=== PATIENT | male | born 1995 | race American Indian/Alaskan Native ===

== ENCOUNTER 2019-02-17 18:29 | Emergency (ER) | payer OTHER ==
--- NOTE | 2019-02-17 19:09 | Emergency Department Report ---
Blank Doc - Documentation Documentation: This is a 23-year-old male that presents with frontal pain and rhinnorrhea. De nies any cough or any other complaints/symptoms. This initial assessment/diagnostic orders/clinical plan/treatment(s) is/are subject to change based on patient's health status, clinical progression and re- assessment by fellow clinical providers in the ED. Further treatment and workup at subsequent clinical providers discretion. Patient/guardians urged not to elope from the ED as their condition may be serious if not clinically assessed and managed. Initial orders include: 1- Patient sent to [facility] for further evaluation and treatment
--- NOTE | 2019-02-17 22:20 | Emergency Department Report ---
- General Chief Complaint: Upper Respiratory Infection Stated Complaint: CHEST TIGHT/EYES WATERY Time Seen by Provider: 02/17/19 19:08 Source: patient Mode of arrival: Ambulatory Limitations: No Limitations - History of Present Illness Initial Comments: Patient is a 23-year-old -[place] male who presents for sinus pain and pressure with rhinorrhea and postnasal drip past week patient has cirrhosis history of seasonal allergies with recurrent sinusitis there is no fever or chills no nausea vomiting no dizziness or lightheadedness symptoms ulcers or movement and position symptoms are relieved by rest MD Complaint: cough, sore throat, rhinorrhea, nasal congestion, sinus pain Onset/Timin -: week(s) Severity: moderate Severity scale (0 -10): 5 Quality: aching Consistency: constant Improves With: nothing Worsens With: activity Associated Symptoms: myalgias, rhinorrhea, nasal congestion, sore throat Treatments Prior to Arrival: none - Related Data Previous Rx's Medication Instructions Recorded Last Taken Type Erythromycin [Erythromycin Ophth 10 applic OD TID #1 tube 11/09/15 Unknown Rx Oint] Cetirizine HCl [Zyrtec] 10 mg PO DAILY #30 tablet 02/17/19 Unknown Rx Clindamycin [Clindamycin CAP] 300 mg PO Q8H 10 Days #30 cap 02/17/19 Unknown Rx Fluticasone [Flonase] 1 spray NS QDAY #1 bottle 02/17/19 Unknown Rx Ibuprofen 800 mg PO TID PRN #30 tablet 02/17/19 Unknown Rx Allergies Allergy/AdvReac Type Severity Reaction Status Date / Time Penicillins Allergy Swelling Verified 11/09/15 13:24 ED Review of Systems ROS: Stated complaint: CHEST TIGHT/EYES WATERY Other details as noted in HPI Constitutional: denies: chills, fever Eyes: denies: eye pain, eye discharge, vision change ENT: throat pain, congestion. denies: ear pain Respiratory: denies: cough, shortness of breath, wheezing Cardiovascular: denies: chest pain, palpitations Endocrine: no symptoms reported Gastrointestinal: denies: abdominal pain, nausea, vomiting, diarrhea Genitourinary: denies: urgency, dysuria Musculoskeletal: denies: back pain, joint swelling, arthralgia Skin: denies: rash, lesions Neurological: denies: headache, weakness, paresthesias Psychiatric: denies: anxiety, depression Hematological/Lymphatic: denies: easy bleeding, easy bruising ED Past Medical Hx - Past Medical History Hx Asthma: Yes - Surgical History Past Surgical History?: No - Social History Smoking Status: Never Smoker Substance Use Type: None - Medications Home Medications: Home Medications Medication Instructions Recorded Confirmed Last Taken Type Erythromycin [Erythromycin Ophth 10 applic OD TID #1 tube 11/09/15 Unknown Rx Oint] Cetirizine HCl [Zyrtec] 10 mg PO DAILY #30 tablet 02/17/19 Unknown Rx Clindamycin [Clindamycin CAP] 300 mg PO Q8H 10 Days #30 cap 02/17/19 Unknown Rx Fluticasone [Flonase] 1 spray NS QDAY #1 bottle 02/17/19 Unknown Rx Ibuprofen 800 mg PO TID PRN #30 tablet 02/17/19 Unknown Rx ED Physical Exam - General Limitations: No Limitations General appearance: alert, in no apparent distress - Head Head exam: Present: atraumatic, normocephalic - Eye Eye exam: Present: normal appearance, PERRL, EOMI Pupils: Present: normal accommodation - ENT ENT exam: Present: mucous membranes moist, TM's normal bilaterally, normal external ear exam - Expanded ENT Exam Expanded Ear exam: Present: other (bilat frontal and maxillary sinus pressure no swelling on erythema ) Mouth exam: Absent: trismus Throat exam: Positive: tonsillar erythema, tonsillomegaly, other (uvula midline no strior no exudate clear post nasal drip moderat erythema ). Negative: tonsillar exudate, R peritonsillar mass, L peritonsillar mass - Neck Neck exam: Present: normal inspection, full ROM, lymphadenopathy. Absent: tenderness, meningismus, thyromegaly - Respiratory Respiratory exam: Present: normal lung sounds bilaterally. Absent: respiratory distress, wheezes, stridor, chest wall tenderness - Cardiovascular Cardiovascular Exam: Present: regular rate, normal rhythm, normal heart sounds. Absent: systolic murmur, diastolic murmur, rubs, gallop - GI/Abdominal GI/Abdominal exam: Present: soft, normal bowel sounds. Absent: distended, tenderness, guarding, bruit, hernia - Rectal Rectal exam: Present: deferred - Extremities Exam Extremities exam: Present: normal inspection - Back Exam Back exam: Present: normal inspection, full ROM. Absent: tenderness, CVA tenderness (R), CVA tenderness (L) - Neurological Exam Neurological exam: Present: alert, oriented X3, CN II-XII intact, normal gait, reflexes normal - Psychiatric Psychiatric exam: Present: normal affect, normal mood - Skin Skin exam: Present: warm, dry, intact, normal color. Absent: rash ED Course Vital Signs 02/17/19 02/17/19 18:55 19:08 Temperature 98.8 F 98.8 F Pulse Rate 105 H 105 H Respiratory 18 18 Rate Blood Pressure 145/76 Blood Pressure 145/76 [Left] O2 Sat by Pulse 97 Oximetry ED Medical Decision Making - Medical Decision Making His current allergic rhinitis versus sinusitis plan Augmentin Flonase Zyrtec ibuprofen and follow up with PCP in 2-3 days patient given referral [facility] patient verbalizes agreement and understanding the same patient DC'd home in stable condition at this time Critical care attestation.: If time is entered above; I have spent that time in minutes in the direct care of this critically ill patient, excluding procedure time. ED Disposition Clinical Impression: Sinusitis Qualifiers: Sinusitis location: maxillary Chronicity: acute Recurrence: recurrent Qualified Code(s): J01.01 - Acute recurrent maxillary sinusitis Allergic rhinitis Qualifiers: Allergic rhinitis seasonality: unspecified Disposition: DC-01 TO HOME OR SELFCARE Is pt being admited?: No Does the pt Need Aspirin: No Condition: Stable Instructions: Sinusitis (ED), Allergic Rhinitis (ED) Prescriptions: Clindamycin [Clindamycin CAP] 300 mg PO Q8H 10 Days #30 cap Fluticasone [Flonase] 1 spray NS QDAY #1 bottle Ibuprofen 800 mg PO TID PRN #30 tablet PRN Reason: pain fever Cetirizine HCl [Zyrtec] 10 mg PO DAILY #30 tablet Referrals: MOUNA FISCHER MD [Primary Care Provider] - 3-5 Days Forms: Work/School Release Form(ED) Time of Disposition: 22:28
[2019-02-17 22:34] VITALS: BP 126/72
== END 2019-02-17 22:32 | disposition home or self-care (01) ==
LOC: ED 18:29
DX: J32.9 Chronic sinusitis, unspecified (principal); J45.909 Unspecified asthma, uncomplicated; Z88.0 Allergy status to penicillin
CPT/HCPCS: 99282